=== PATIENT | female | born 1960 | race Two or more races ===

== ENCOUNTER 2022-11-06 10:54 | Emergency (ER) | payer OTHER ==
[~2022-11-06] VITALS: Ht 162.6 cm; Wt 54.4 kg
[2022-11-06 10:58] VITALS: BP 136/82; TEMP 98.3
[2022-11-06 11:47] VITALS: O2SAT 100
== END 2022-11-06 11:48 | disposition home or self-care (01) ==
LOC: ER 11:01
DX: M79.641 Pain in right hand (principal)